=== PATIENT | female | born 1965 | race African-American/Black ===

== ENCOUNTER 2023-09-12 17:05 | Emergency (ER) | payer BC ==
[~2023-09-12] VITALS: Ht 165.1 cm; Wt 76.2 kg
[2023-09-12 18:30] LABS: BASOPHILS % (AUTO) 0.5 % (0.0-2.0); EOSINOPHILS # (AUTO) 0.1 K/uL (0.0-0.7); EOSINOPHILS % (AUTO) 1.5 % (0.0-6.0); HEMATOCRIT 49 % (33-45); LYMPHOCYTES # (AUTO) 1.8 K/uL (0.8-4.8); MEAN CORPUSCULAR HEMOGLOBIN 30 PG (26.0-33.0); MEAN CORPUSCULAR HGB CONC 33 g/dl (31.0-36.0); MEAN CORPUSCULAR VOLUME 91 fL (82-100); MONOCYTES # (AUTO) 0.4 K/uL (0.1-1.30); MONOCYTES % (AUTO) 6.2 % (2.0-12.0); NEUTROPHILS # (AUTO) 4.7 K/uL (1.8-8.9); NEUTROPHILS % (AUTO) 65.8 % (43.0-81.0); PLATELET COUNT (AUTO) 220 K/uL (150-450); RED BLOOD CELL COUNT(AUTO) 5.41 MIL/uL (4.0-5.2); RED CELL DISTRIBUTION WIDTH 13.3 % (11.5-15.0); WHITE BLOOD COUNT (AUTO) 7.1 K/uL (4.3-11.0)
[2023-09-12 18:32] LABS: APPEARANCE,URINE Clear (CLEAR); BILIRUBIN,URINE Negative (NEGATIVE); BLOOD, URINE Trace-lysed Ery/uL (NEGATIVE); COLOR,URINE YELLOW (YELLOW); KETONES,URINE Negative (NEGATIVE); LEUKOCYTE ESTERASE ,URINE Negative (NEGATIVE); NITRITE, URINE Negative (NEGATIVE); PH,URINE 5.5 (5.0-8.0); PROTEIN,URINE Negative (NEGATIVE); UGLUCOSE Negative (NEGATIVE); UROBILINOGEN,URINE 0.2 EU/dL (0.2)
[2023-09-12] MEDS ORDERED: ONDANSETRON HCL/PF 4 MG/2 ML VIAL ONE (18:36)
[2023-09-12] MEDS ORDERED: MORPHINE SULFATE INJ 4 MG/ML DISP.SYRIN ONE (18:37)
[2023-09-12] MEDS: MORPHINE SULFATE INJ 2 MG/ML DISP.SYRIN IV ONE (18:38)
[2023-09-12] MEDS: ONDANSETRON HCL/PF 4 MG/2 ML VIAL IVP ONE (18:39)
[2023-09-12] MEDS: IV NS 0.9% 1,000 ML BAG IV ONE (18:39)
[2023-09-12 18:43] LABS: CREATININE 0.9 mg/dL (0.6-1.3); POTASSIUM 3.3 mmol/L (3.5-5.1)
[2023-09-12 18:49] LABS: ALBUMIN 3.3 g/dL (3.4-5.0); BILIRUBIN,DIRECT 0.2 mg/dL (0.0-0.2); BILIRUBIN,TOTAL 1.3 mg/dL (0.2-1.0); TOTAL PROTEIN, SERUM 6.9 g/dL (6.4-8.2)
[2023-09-12 18:54] LABS: ADD URINE CULTURE NO; BACTERIA,URINE Few /HPF (None Seen); RBC,URINE 0-3 /HPF (0-2); SQUAMOUS EPITHELIAL CELL,UR Moderate /HPF (None Seen); WBC,URINE 0-2 /HPF (0-3)
[2023-09-12 18:55] LABS: CALCIUM OXALATE CRYSTALS,UR Few /HPF (None Seen)
[2023-09-12 19:02] LABS: CALCIUM, SERUM 9.2 mg/dL (8.5-10.1)
[2023-09-12] MEDS ORDERED: IBUP-1955 PO (21:04)
[2023-09-12 21:39] VITALS: BP 142/87; TEMP 98.5; O2SAT 99
== END 2023-09-12 21:39 | disposition home or self-care (01) ==
LOC: ER 17:08
DX: R16.0 Hepatomegaly, not elsewhere classified (principal); R10.84 Generalized abdominal pain; Z60.2 Problems related to living alone
CPT/HCPCS: 99285; 74176; 96374; 96361; 96375; 85025; 80048; 83690; 80076; 81001; 36415; J2270; J2405; J7030

== ENCOUNTER 2023-12-20 21:03 | Emergency (ER) | payer BC ==
[~2023-12-20] VITALS: Ht 165.1 cm; Wt 79.4 kg
[~2023-12-20 21:03] MED LIST: IBUP-1955 PO
[2023-12-20] MEDS ORDERED: oxyCODONE/APAP (5/325 MG) 1 UDTAB TABLET ONE (22:51)
[2023-12-20] MEDS: oxyCODONE/APAP (5/325 MG) 1 UDTAB TABLET PO ONE (23:00)
[2023-12-20] MEDS ORDERED: MORPHINE SULFATE INJ 4 MG/ML DISP.SYRIN ONE (23:09)
[2023-12-20] MEDS ORDERED: ONDANSETRON HCL/PF 4 MG/2 ML VIAL ONE (23:09)
[2023-12-20] MEDS: MORPHINE SULFATE INJ 2 MG/ML DISP.SYRIN IV ONE (23:33)
[2023-12-20] MEDS: ONDANSETRON HCL/PF 4 MG/2 ML VIAL IV ONE (23:33)
[2023-12-21] MEDS ORDERED: MORPHINE SULFATE INJ 4 MG/ML DISP.SYRIN ONE (02:12)
[2023-12-21] MEDS: MORPHINE SULFATE INJ 2 MG/ML DISP.SYRIN IV ONE (02:20)
[2023-12-21] MEDS ORDERED: HYDR-3972 PO (08:50)
[2023-12-21 09:10] VITALS: BP 121/84; TEMP 98; O2SAT 99
== END 2023-12-21 09:10 | disposition home or self-care (01) ==
LOC: ER 21:18
DX: M54.2 Cervicalgia (principal); M54.50 Low back pain, unspecified; R51.9 Headache, unspecified; R68.84 Jaw pain; M25.552 Pain in left hip; M25.562 Pain in left knee; M25.561 Pain in right knee; M79.631 Pain in right forearm; M25.512 Pain in left shoulder; M25.511 Pain in right shoulder; J44.9 Chronic obstructive pulmonary disease, unspecified; Z60.2 Problems related to living alone; W52.XXXA Crushed, pushed or stepped on by crowd or human stampede, initial encounter; Y93.89 Activity, other specified; Y92.89 Other specified places as the place of occurrence of the external cause; Y99.8 Other external cause status
CPT/HCPCS: 99285; 72125; 96374; 96375; 73552; 73090; 73503; 73060; 73564 ×2; 73030 ×2; 70450; 72131; 72128; 70486; 96376; J2270 ×2; J2405; 73502